=== PATIENT | female | born 1980 | race Caucasian/White ===

== ENCOUNTER → 2018-09-22 16:09 | Outpatient (CLI) | payer BC, SELFPAY ==
[2018-09-22 18:20] LABS: Thyroid Stim Hormone (TSH) 0.13 uIU/mL (0.358-3.74)
== END ==
PROVIDERS: Family Provider Family Medicine; PCP Family Medicine; Visit Provider Family Medicine
DX: R63.5 Abnormal weight gain (principal)
CPT/HCPCS: 36415; 84443

== ENCOUNTER 2018-12-14 05:36 | Day surgery (SDC) | payer BC, SELFPAY ==
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
[2018-12-14] VITALS (7 sets, daily range): BP systolic 138–152; BP diastolic 92–105; PULSE 88–101; RESP 16–18; TEMP 36.3–37.3; O2SAT 96–99; BMI 37.1
--- NOTE | 2018-12-14 | EMB_PTH ---
PATIENT: MOSHE DOOLEY LOC: [facility] – [place] U#:[id number] AGE/SX: 37/F ROOM: RE12/14/[address]: Dr. Negrito Artis MD : [id number] BED: DIS: 12/14/2018 SPEC #: [id number] RECD: 12/14/18 12:14 STATUS: ANNEMARIE DANY #: [id number] ANGEL: 12/14/18 00:[address]: Negrito Artis DEPT: SURGICAL PATHOLOGY RECD BY: Nabil Wallace ENTERED: 12/14/18 12:14 SP TYPE: ENDOM BX/C AUSTEN DR: Dr. Greg Jacob, DO Tissues: Endometrium, NOS Procedures: Surgery Specimen Level IV HEADER OPERATION: Hysteroscopy, dilation and curettage PRE-OP DIAGNOSIS: Dysmenorrhea, irregular menstrual cycle TISSUE SUBMITTED: Endometrial curettings MICROSCOPIC DIAGNOSIS Endometrium, curettings: Secretory endometrium. AM:marta 12/15/18 MICROSCOPIC DESCRIPTION Slides are reviewed. GROSS DESCRIPTION Received in fixative is one container labeled with the patient's name and designated endometrial curettings. The specimen consists of multiple fragments of hemorrhagic soft tissue that in aggregate measure 5 x 3 x 0.3 cm. The entire specimen is submitted in two cassettes. / SJ:rg 12/14/18 TC:5 CPT: 07537
[2018-12-14 06:21] LABS: Internal QC Validated? YES +Cl - CLEAR BKGD; Pregnancy, Urine Negative Negative
--- NOTE | 2018-12-14 07:29 | OP.PCM_ITS ---
Report of Operation Date of Procedure: 12/14/18 Pre-Operative Diagnosis: Dysmenorrhea, Menorrhagia Post-Operative Diagnosis: Dysmenorrhea, Menorrhagia Surgery/Procedure Performed:: Diagnostic Hysteroscopy and Dilation and Curettage Description of Surgical Findings:: 8 cm endometrial cavity with multiple small polyps and no fibroids. Cervix with minimal descensus which would make vaginal or laparoscopic assisted hysterectomy technically difficult but robotic assisted vaginal hysterectomy would be technically feasible. Type of Anesthesia:: MAC - Converted to general LMA Anesthesiologist: Antonio Moreland Specimen's removed: Endometrial curettings Estimated Blood Loss (mL): Minimal Fluids Replaced: Crystalloid Description of Procedure: Surgeon: Negrito Artis MD, FACOG Indications: This is a 37 year old patient who has the above diagnosis. The patient has been counseled regarding the risk and indications of this procedure including the possibility of bleeding, infection, and injury to surrounding structures such as bowel bladder. All questions were answered and we consider t he patient well-informed. Procedure: The patient was taken to the operating room where after induction of general anesthesia, she was placed in the dorsolithotomy position and prepped and draped in the usual sterile fashion. Anterior cervix was grasped with the tenaculum and dilated to about 4-5 mm. A 3 mm hysteroscope was placed in the uterus of the above findings were noted. Cervix was dilated to about 10 mm and uterus was gently curetted removing all contents. Hysteroscope was reinserted and all material was noted to be removed. In the course of the procedure approximately 100 cc of saline distending media was used and virtually all of this was recovered. Patient tolerated procedure well was taken to recovery room in satisfactory condition sponge instrument and needle counts were all reportedly correct. Estimated blood loss for the case was minimal. Grafts/Implants Used: None - Complications None - Admit VTE Documentation VTE Present on Admission: Yes VTE Mechan Device Prophylaxis: SCD's
--- NOTE | 2018-12-14 07:32 | DCINST_ITS ---
Discharge Diet: No Restrictions Discharge Activity: Return to Normal Activity, May Shower, May Take a Tub Bath May resume sexual activity in: 2 weeks Call your doctor if you observe: Fever of 101 or Higher, Inability to urinate, Inability to have a bowel movement, Using more than one pad per hour Allergies/Adverse Reactions: Allergies No Known Allergies Allergy (Verified 12/14/18 06:05) Medications to take at Discharge B Complex with Vitamin C [Super B Complex with C] 1 each PO DAILY 01/12/15 Cyanocobalamin [Vitamin B12] 500 mcg PO DAILY@0800 01/12/15 Multivitamins,Therapeutic [Multivitamin] 2 tab PO DAILY 01/12/15 Primary Care Physician: Greg Jacob DO [Primary Care Provider] - Test Results: Test results from this visit will be discussed in further detail at your follow- up appointment, if applicable. Please Follow Up With: Negrito Artis MD When: 2 to 3 weeks
== END 2018-12-14 09:51 | disposition home or self-care (01) ==
LOC: SDC 05:38 → AC 05:41
PROVIDERS: Anesthesiology; Family Provider Family Medicine; PCP Family Medicine; Referring Provider Obstetrics & Gynecology; Visit Provider Obstetrics & Gynecology
PROC: 0UDB8ZZ Extraction of Endometrium, Via Natural or Artificial Opening Endoscopic (ICD-10-PCS; CPT 58558; principal; 2018-12-14 07:20)
DX: N94.6 Dysmenorrhea, unspecified (principal); N92.0 Excessive and frequent menstruation with regular cycle; R10.2 Pelvic and perineal pain; B00.9 Herpesviral infection, unspecified; Z79.899 Other long term (current) drug therapy; F17.200 Nicotine dependence, unspecified, uncomplicated
CPT/HCPCS: 58558; 81025; 86850; 86900; 88305; J7120

== ENCOUNTER → 2019-06-07 10:09 | Outpatient (CLI) | payer BC, SELFPAY ==
[2018-12-14 06:13] VITALS: BMI 37.1
[2019-06-07 12:17] LABS: Absolute Lymphocyte Count 2.99 X10^3/uL (0.83-4.51); Absolute Neutrophil Count 6.5 X10^3/uL (2.0-7.7); Basophil# 0.06 X10^3/uL; Basophil% 0.6 % (0-1); Eosinophil# 0.22 X10^3/uL; Eosinophils% 2.1 % (0-5); Hematocrit 38.7 % (37-47); Hemoglobin 12.5 g/dL (12.0-15.0); Lymphocyte # 2.99 X10^3/ul (4.0); Lymphocyte % 28.2 % (19-41); Mean Corp Hgb Conc 32.3 g/dL (32-36); Mean Corpuscular Hgb 28.5 pg (27.0-32.0); Mean Corpuscular Volume 88.2 fL (81-99); Mean Platelet Vol. 10.1 fl (6.2-12.0); Monocyte# 0.63 X10^3/uL; Monocyte% 5.9 % (0-10); NRBC Flagged by Analyzer 0 % (0-5); Neutrophil # 6.53 X10^3/uL (2.7-7.7); Neutrophil % 61.7 % (47-70); Platelet Count 356 K/mm3 (150-450); RBC Distribution Width CV 12.9 % (11.6-14.6); RBC Distribution Width SD 41.6 fl (35.1-43.9); Red Blood Count 4.39 M/mm3 (4.2-5.4); White Blood Count 10.6 K/mm3 (4.4-11.0)
[2019-06-07 13:03] LABS: AST(SGOT) 12 U/L (15-37); Alanine Aminotransfer ALT/SGPT 28 U/L (13-56); Albumin, Serum 3.8 g/dL (3.2-5.0); Alkaline Phosphatase 86 U/L (45-117); Anion Gap 7 (5-15); BUN 15 mg/dL (7-18); BUN/Creat Ratio 22.7 RATIO (10-20); Calcium,Total 8.7 mg/dL (8.5-10.1); Chloride 106 mmol/L (98-107); Creatinine, Serum 0.66 mg/dL (0.55-1.02); EST Glomerular Filtration Rate 107 mL/min (>60); Est Glom Filt Rate - Afr Amer 130 mL/min (>60); Free T3 3.2 pg/mL (2.18-3.98); Globulin 3.7 g/dL (2.2-4.2); Glucose 118 mg/dL (74-106); Potassium 3.8 mmol/L (3.5-5.1); Protein, Total 7.5 g/dL (6.4-8.2); Sodium Level 138 mmol/L (136-145); T4 Free Direct 1.07 ng/dL (0.76-1.46); Thyroid Stim Hormone (TSH) 0.16 uIU/mL (0.358-3.74)
[2019-06-11 13:21] LABS: T3 Reverse 18.4 ng/dL (9.2-24.1)
== END ==
PROVIDERS: PCP Family Medicine; Visit Provider Family Medicine
DX: I10 Essential (primary) hypertension (principal); R79.89 Other specified abnormal findings of blood chemistry; R73.01 Impaired fasting glucose; R53.83 Other fatigue
CPT/HCPCS: 36415; 80053; 82533; 83036; 84439; 84443; 84481; 84482; 85025

== ENCOUNTER → 2019-06-29 15:39 | Outpatient (CLI) | payer BC, SELFPAY ==
[2018-12-14 06:13] VITALS: BMI 37.1
[2019-06-29 17:49] LABS: Follicle Stimulating Hormone 7.1 mIU/mL; Luteinizing Hormone 3.4 mIU/mL; Prolactin 11.9 ng/mL
[2019-07-02 12:02] LABS: Adrenocorticotropic Hormone 10.7 pg/mL (7.2-63.3)
== END ==
PROVIDERS: PCP Family Medicine; Visit Provider Family Medicine
DX: N92.0 Excessive and frequent menstruation with regular cycle (principal); R79.89 Other specified abnormal findings of blood chemistry
CPT/HCPCS: 36415; 82024; 83001; 83002; 84146; 84439; 84443

== ENCOUNTER → 2020-03-03 11:52 | Outpatient (CLI) | payer BC, SELFPAY ==
[2018-12-14 06:13] VITALS: BMI 37.1
[2020-03-03 15:37] LABS: Absolute Lymphocyte Count 3.43 X10^3/uL (0.83-4.51); Absolute Neutrophil Count 6.6 X10^3/uL (2.0-7.7); Basophil# 0.05 X10^3/uL; Basophil% 0.5 % (0-1); Eosinophil# 0.15 X10^3/uL; Eosinophils% 1.4 % (0-5); Hematocrit 39.3 % (37-47); Hemoglobin 12.2 g/dL (12.0-15.0); Lymphocyte # 3.43 X10^3/ul (4.0); Lymphocyte % 31.2 % (19-41); Mean Corpuscular Hgb 27.1 pg (27.0-32.0); Mean Corpuscular Volume 87.3 fL (81-99); Monocyte# 0.66 X10^3/uL; NRBC Flagged by Analyzer 0 % (0-5); Neutrophil # 6.62 X10^3/uL (2.7-7.7); Neutrophil % 60.2 % (47-70); Platelet Count 412 K/mm3 (150-450); RBC Distribution Width CV 13.7 % (11.6-14.6); RBC Distribution Width SD 43.3 fl (35.1-43.9)
[2020-03-03 15:57] LABS: Hemoglobin A1c 5.8 % (3.8-5.6)
[2020-03-03 16:00] LABS: ALB/GLOB Ratio 0.9 RATIO (0.9-2.4); AST(SGOT) 9 U/L (15-37); Alanine Aminotransfer ALT/SGPT 18 U/L (13-56); Albumin, Serum 3.7 g/dL (3.2-5.0); Alkaline Phosphatase 81 U/L (45-117); Anion Gap 7 (5-15); BUN 9 mg/dL (7-18); BUN/Creat Ratio 16.9 RATIO (10-20); Calcium,Total 8.7 mg/dL (8.5-10.1); Chloride 109 mmol/L (98-107); Cholesterol 162 mg/dL (200); Creatinine, Serum 0.53 mg/dL (0.55-1.02); EST Glomerular Filtration Rate 137 mL/min (>60); Est Glom Filt Rate - Afr Amer 166 mL/min (>60); Glucose 82 mg/dL (74-106); High Density Lipoprotein 47 mg/dL; Potassium 4.1 mmol/L (3.5-5.1); Protein, Total 7.7 g/dL (6.4-8.2); Sodium Level 141 mmol/L (136-145); T4 Free Direct 1.27 ng/dL (0.76-1.46); Thyroid Stim Hormone (TSH) 0.09 uIU/mL (0.358-3.74); Triglycerides 148 mg/dL; Very Low Density Lipoprotein 30 mg/dL (5-40)
== END ==
PROVIDERS: PCP Family Medicine; Visit Provider Family Medicine
DX: Z00.00 Encounter for general adult medical examination without abnormal findings (principal); R73.03 Prediabetes; R79.89 Other specified abnormal findings of blood chemistry
CPT/HCPCS: 36415; 80053; 80061; 83036; 83525; 84439; 84443; 85025

== ENCOUNTER → 2020-07-28 11:11 | Outpatient (CLI) | payer BC, SELFPAY ==
[2018-12-14 06:13] VITALS: BMI 37.1
[2020-07-28 12:50] LABS: T3 Total - Triiodothyronine 1.37 ng/mL (0.6-1.81)
[2020-07-28 12:59] LABS: Hemoglobin A1c 5.6 % (3.8-5.6)
[2020-07-28 13:05] LABS: ALB/GLOB Ratio 1.1 RATIO (0.9-2.4); AST(SGOT) 14 U/L (15-37); Alanine Aminotransfer ALT/SGPT 28 U/L (13-56); Alkaline Phosphatase 85 U/L (45-117); Anion Gap 8 (5-15); BUN 14 mg/dL (7-18); BUN/Creat Ratio 25.3 RATIO (10-20); Calcium,Total 8.9 mg/dL (8.5-10.1); Chloride 102 mmol/L (98-107); Cholesterol 161 mg/dL (200); Creatinine, Serum 0.55 mg/dL (0.55-1.02); EST Glomerular Filtration Rate 131 mL/min (>60); Est Glom Filt Rate - Afr Amer 158 mL/min (>60); Free T3 3.2 pg/mL (2.18-3.98); Globulin 3.7 g/dL (2.2-4.2); Glucose 94 mg/dL (74-106); High Density Lipoprotein 39 mg/dL; Potassium 3.9 mmol/L (3.5-5.1); Protein, Total 7.7 g/dL (6.4-8.2); Sodium Level 138 mmol/L (136-145); T4 Free Direct 1.24 ng/dL (0.76-1.46); Thyroid Stim Hormone (TSH) 0.12 uIU/mL (0.358-3.74); Triglycerides 190 mg/dL; Very Low Density Lipoprotein 38 mg/dL (5-40)
== END ==
PROVIDERS: PCP Family Medicine; Referring Provider Family Medicine; Visit Provider Family Medicine
DX: Z00.00 Encounter for general adult medical examination without abnormal findings (principal); R73.03 Prediabetes; E03.8 Other specified hypothyroidism
CPT/HCPCS: 36415; 80053; 80061; 83036; 84436; 84439; 84443; 84480; 84481

== ENCOUNTER 2021-05-14 16:34 | Outpatient (CLI) | payer BC, SELFPAY | END 2021-05-14 23:59 | disposition short-term general hospital (02) | LOC: LABSPEC 16:35 | PROVIDERS: PCP Family Medicine; Referring Provider Physician Assistant; Visit Provider Physician Assistant | DX: U07.1 COVID-19 (principal) | CPT/HCPCS: 87635; U0003; U0005 ==

== ENCOUNTER 2021-06-08 16:42 | Outpatient (CLI) | payer BC, SELFPAY ==
--- NOTE | 2021-06-08 16:46 | CT_ITS ---
EXAM: CT MAXILLOFACIAL SINUSES WITHOUT INTRAVENOUS CONTRAST CLINICAL INDICATION: L FOREHEAD AND FACIAL PAIN TECHNIQUE: Helically acquired images were obtained of the maxillofacial sinuses without intravenous contrast. This CT exam was performed using one or more of the following dose reduction techniques: automated exposure control, adjustment of the mA and/or kV according to patient size, and/or use of iterative reconstruction technique. This report was created using [employer] report generation technology. COMPARISON: None. FINDINGS: MAXILLARY SINUSES: Left maxillary sinus disease. Ostiomeatal complexes are normally formed. SPHENOID SINUSES: Clear. FRONTAL SINUSES: Clear. ETHMOID AIR CELLS: Clear. NASAL CAVITY/SEPTUM: Nasal septum is midline. Nasal turbinates are unremarkable. BONES/JOINTS: Anterior cranial fossa is unremarkable. LYMPH NODES: Scattered lymph nodes in the parotid gland and cervical chain. These may be reactive. ORBITS: Unremarkable. DENTAL: Unremarkable as visualized. No periodontal osseous erosion. CT/Sinus/Facial Bone IMPRESSION: 1. Scattered lymph nodes in the parotid gland and cervical chain. These may be reactive. 2. Left maxillary sinus disease. Electronically Signed: Akash Lagunas MD at 19:03 EST ,
== END 2021-06-08 23:59 | disposition short-term general hospital (02) ==
LOC: CT 16:44
PROVIDERS: PCP Family Medicine; Referring Provider Family Medicine; Visit Provider Family Medicine
DX: R51.9 Headache, unspecified (principal)
CPT/HCPCS: 70486

== ENCOUNTER 2021-06-21 13:00 | Outpatient (CLI) | payer BC, SELFPAY | END 2021-06-21 23:59 | disposition home or self-care (01) | PROVIDERS: PCP Family Medicine; Visit Provider Family Medicine | DX: G47.30 Sleep apnea, unspecified (principal); G47.10 Hypersomnia, unspecified; R06.83 Snoring | CPT/HCPCS: 95806 ==

== ENCOUNTER → 2021-09-19 | Outpatient (CLI) | payer BC, SELFPAY | END | disposition home or self-care (01) | LOC: SL 15:14 | PROVIDERS: PCP Family Medicine; Visit Provider Family Medicine | DX: Z46.89 Encounter for fitting and adjustment of other specified devices (principal) ==

== ENCOUNTER → 2022-08-05 | Outpatient (CLI) | payer BC, SELFPAY ==
[2022-08-05 12:39] LABS: T4 Free Direct 1.14 ng/dL (0.76-1.46); Thyroid Stim Hormone (TSH) 0.13 uIU/mL (0.358-3.74)
== END | disposition home or self-care (01) ==
PROVIDERS: PCP Family Medicine; Referring Provider Family Medicine; Visit Provider Family Medicine
DX: E03.8 Other specified hypothyroidism (principal)
CPT/HCPCS: 36415; 84439; 84443

== ENCOUNTER → 2023-03-24 | Outpatient (CLI) | payer BC, SELFPAY ==
[2023-03-24 17:54] LABS: Absolute Lymphocyte Count 3.88 X10^3/uL (0.83-4.51); Absolute Neutrophil Count 8.2 X10^3/uL (2.0-7.7); Basophil# 0.07 X10^3/uL; Basophil% 0.5 % (0-1); Eosinophil# 0.14 X10^3/uL; Eosinophils% 1.1 % (0-5); Hematocrit 37.3 % (37-47); Hemoglobin 11.9 g/dL (12.0-15.0); Lymphocyte # 3.88 X10^3/ul (0.83-4.51); Lymphocyte % 29.5 % (19-41); Mean Corp Hgb Conc 31.9 g/dL (32-36); Mean Corpuscular Volume 87.8 fL (81-99); Mean Platelet Vol. 10.1 fl (6.2-12.0); Monocyte% 6.1 % (0-10); NRBC Flagged by Analyzer 0 % (0-5); Neutrophil # 8.17 X10^3/uL (2.7-7.7); Platelet Count 386 K/mm3 (150-450); RBC Distribution Width CV 13.5 % (11.6-14.6); RBC Distribution Width SD 43.4 fl (35.1-43.9); Red Blood Count 4.25 M/mm3 (4.2-5.4); White Blood Count 13.2 K/mm3 (4.4-11.0)
[2023-03-24 18:20] LABS: Hemoglobin A1c 5.8 % (3.8-5.6)
[2023-03-24 18:21] LABS: Vitamin B12 237 pg/mL (211-911); Vitamin D,25 Hydroxy 19.9 ng/mL
[2023-03-24 18:22] LABS: Anion Gap 6 (5-15); BUN 19 mg/dL (7-18); BUN/Creat Ratio 30.9 RATIO (10-20); Calcium,Total 9.1 mg/dL (8.5-10.1); Chloride 103 mmol/L (98-107); Creatinine, Serum 0.62 mg/dL (0.55-1.02); EST Glomerular Filtration Rate 114 mL/min (>60); Est Glom Filt Rate - Afr Amer 138 mL/min (>60); Glucose 99 mg/dL (74-106); Potassium 3.7 mmol/L (3.5-5.1); Sodium Level 137 mmol/L (136-145); T4 Free Direct 1.13 ng/dL (0.76-1.46); Thyroid Stim Hormone (TSH) 0.23 uIU/mL (0.358-3.74)
== END | disposition home or self-care (01) ==
LOC: BFHLAB 15:48
PROVIDERS: PCP Family Medicine; Visit Provider Family Medicine
DX: I10 Essential (primary) hypertension (principal); E03.8 Other specified hypothyroidism; R73.01 Impaired fasting glucose; R53.83 Other fatigue
CPT/HCPCS: 36415; 80048; 82306; 82607; 83036; 84439; 84443; 85025

== ENCOUNTER → 2023-04-04 | Outpatient (CLI) | payer BC, SELFPAY ==
--- NOTE | 2023-04-04 08:30 | BI_ITS ---
MAMMOGRAPHY - BILATERAL SCREENING REASON FOR EXAM: Female, 42 years old. Routine annual screening examination. PERTINENT HISTORY: Non-contributory. TECHNIQUE: Digital bilateral breast elliot (3D mammographic acquisition) in the CC and MLO projections. 2-D mediolateral oblique (MLO) and craniocaudad (CC) views of both breasts were obtained. CAD: Full Field Digital Mammography with Computer Added Detection was performed. COMPARISON: None. Baseline examination. FINDINGS: Breast Composition: The breasts are extremely dense, which lowers the sensitivity of mammography. There are no dominant masses or suspicious calcifications. There are small benign-appearing bilateral axillary lymph nodes. No other significant abnormalities are identified. BI/SCRN MAMM (CAD)W/ELLIOT BILAT IMPRESSION: Negative screening mammogram. Yearly followup mammogram recommended. (A) ASSESSMENT CATEGORY: BIRADS Category 2: Benign. A letter regarding these results will be sent to the patient by the facility within 30 days. Approximately 10% of breast cancers are not detected by mammography. A normal mammogram should not delay biopsy of a clinically suspicious abnormality. [id number] Electronically Signed: Jose Mata MD at 9:15 EST ,
== END | disposition home or self-care (01) ==
LOC: OPBI 08:28
PROVIDERS: PCP Family Medicine; Referring Provider Family Medicine; Visit Provider Family Medicine
DX: Z12.31 Encounter for screening mammogram for malignant neoplasm of breast (principal)
CPT/HCPCS: 77063; 77067

== ENCOUNTER → 2023-09-22 | Outpatient (CLI) | payer BC, SELFPAY ==
[2023-09-22 19:30] LABS: Vitamin B12 388 pg/mL (211-911); Vitamin D,25 Hydroxy 38.6 ng/mL
[2023-09-22 21:30] LABS: Free T3 2.6 pg/mL (2.18-3.98); T4 Free Direct 1.06 ng/dL (0.76-1.46); Thyroid Stim Hormone (TSH) 0.21 uIU/mL (0.358-3.74)
== END | disposition home or self-care (01) ==
LOC: BFHLAB 16:26
PROVIDERS: PCP Family Medicine; Referring Provider Family Medicine; Visit Provider Family Medicine
DX: E03.8 Other specified hypothyroidism (principal); E55.9 Vitamin D deficiency, unspecified; E53.8 Deficiency of other specified B group vitamins
CPT/HCPCS: 36415; 82306; 82607; 84439; 84443; 84481

== ENCOUNTER → 2024-03-29 | Outpatient (CLI) | payer BC, SELFPAY ==
[2024-03-29 18:12] LABS: ALB/GLOB Ratio 1.1 RATIO (0.9-2.4); AST(SGOT) 12 U/L (15-37); Alanine Aminotransfer ALT/SGPT 27 U/L (13-56); Albumin, Serum 4.1 g/dL (3.2-5.0); Alkaline Phosphatase 76 U/L (45-117); Anion Gap 9 (5-15); BUN 13 mg/dL (7-18); BUN/Creat Ratio 21.6 RATIO (10-20); Calcium,Total 9.5 mg/dL (8.5-10.1); Chloride 104 mmol/L (98-107); Cholesterol 202 mg/dL (200); EST Glomerular Filtration Rate 117 mL/min (>60); Est Glom Filt Rate - Afr Amer 141 mL/min (>60); Free T3 3.3 pg/mL (2.18-3.98); Globulin 3.8 g/dL (2.2-4.2); Glucose 101 mg/dL (74-106); High Density Lipoprotein 49 mg/dL; Potassium 3.7 mmol/L (3.5-5.1); Protein, Total 7.9 g/dL (6.4-8.2); Sodium Level 137 mmol/L (136-145); T4 Free Direct 1.18 ng/dL (0.76-1.46); Triglycerides 388 mg/dL; Very Low Density Lipoprotein 78 mg/dL (5-40)
[2024-03-29 18:26] LABS: Hemoglobin A1c 5.8 % (3.8-5.6)
== END | disposition home or self-care (01) ==
PROVIDERS: PCP Family Medicine; Referring Provider Family Medicine; Visit Provider Family Medicine
DX: Z00.00 Encounter for general adult medical examination without abnormal findings (principal); E03.9 Hypothyroidism, unspecified; R73.01 Impaired fasting glucose
CPT/HCPCS: 36415; 80053; 80061; 83036; 84439; 84443; 84481

== ENCOUNTER → 2024-05-19 | Outpatient (CLI) | payer BC, SELFPAY ==
[2024-05-21 10:07] LABS: Age Gdln ACOG Testing 30-65 (.); HPV APTIMA, High Risk Negative (Negative)
[2024-05-21 14:01] LABS: HPV Reflexed? YES, CHARGE PATIENT
== END | disposition home or self-care (01) ==
LOC: LABSPEC 09:42
PROVIDERS: PCP Nurse Practitioner Family; Referring Provider Nurse Practitioner Family; Visit Provider Nurse Practitioner Family
DX: Z12.4 Encounter for screening for malignant neoplasm of cervix (principal)
CPT/HCPCS: 87624; 88175; G0145

== ENCOUNTER → 2024-06-21 | Outpatient (CLI) | payer BC, SELFPAY ==
[2024-06-21 19:15] LABS: Absolute Lymphocyte Count 4.61 X10^3/uL (0.83-4.51); Absolute Neutrophil Count 7.4 X10^3/uL (2.0-7.7); Basophil# 0.09 X10^3/uL; Basophil% 0.7 % (0-1); Eosinophil# 0.28 X10^3/uL; Eosinophils% 2.1 % (0-5); Hematocrit 43.2 % (37-47); Hemoglobin 13.6 g/dL (12.0-15.0); Lymphocyte # 4.61 X10^3/ul (0.83-4.51); Lymphocyte % 34.6 % (19-41); Mean Corp Hgb Conc 31.5 g/dL (32-36); Mean Corpuscular Hgb 28.8 pg (27.0-32.0); Mean Corpuscular Volume 91.5 fL (81-99); Mean Platelet Vol. 10.4 fl (6.2-12.0); Monocyte# 0.76 X10^3/uL; Monocyte% 5.7 % (0-10); NRBC Flagged by Analyzer 0 % (0-5); Neutrophil # 7.43 X10^3/uL (2.7-7.7); Neutrophil % 55.6 % (47-70); Platelet Count 424 K/mm3 (150-450); RBC Distribution Width CV 12.5 % (11.6-14.6); RBC Distribution Width SD 41.8 fl (35.1-43.9); Red Blood Count 4.72 M/mm3 (4.2-5.4); White Blood Count 13.3 K/mm3 (4.4-11.0)
[2024-06-21 19:18] LABS: Erythrocyte Sedimentation Rate 5 mm/hr (0-30)
[2024-06-21 20:01] LABS: ALB/GLOB Ratio 1.2 RATIO (0.9-2.4); AST(SGOT) 17 U/L (15-37); Alanine Aminotransfer ALT/SGPT 30 U/L (13-56); Albumin, Serum 4.4 g/dL (3.2-5.0); Alkaline Phosphatase 65 U/L (45-117); Anion Gap 9 (5-15); BUN 8 mg/dL (7-18); BUN/Creat Ratio 12.8 RATIO (10-20); Calcium,Total 9.4 mg/dL (8.5-10.1); Chloride 104 mmol/L (98-107); Creatinine, Serum 0.62 mg/dL (0.55-1.02); EST Glomerular Filtration Rate 112 mL/min (>60); Est Glom Filt Rate - Afr Amer 135 mL/min (>60); Globulin 3.7 g/dL (2.2-4.2); Glucose 100 mg/dL (74-106); Protein, Total 8.1 g/dL (6.4-8.2); Rheumatoid Factor < 10.0 IU/mL (<15); Sodium Level 136 mmol/L (136-145)
[2024-06-23 13:07] LABS: ANTINUCLEAR ANTIBODIES DIRECT Negative (Negative)
== END | disposition home or self-care (01) ==
LOC: BFHLAB 13:48
PROVIDERS: PCP Nurse Practitioner Family; Referring Provider Nurse Practitioner; Visit Provider Nurse Practitioner
DX: L50.1 Idiopathic urticaria (principal); T78.3XXD Angioneurotic edema, subsequent encounter
CPT/HCPCS: 36415; 80053; 83520; 85025; 85652; 86038; 86160; 86161; 86431